=== PATIENT | male | born 1990 | race Caucasian/White ===

== ENCOUNTER 2017-03-02 08:50 | Emergency (ER) | payer OTHER, SELFPAY ==
[2017-03-02 08:59] VITALS: BP 121/64; PULSE 117; RESP 20; TEMP 38.8; O2SAT 91; BMI 33.9
[2017-03-02 09:18] VITALS: BP 121/64; PULSE 117; RESP 20; TEMP 38.8; O2SAT 91; BMI 33.9
--- NOTE | 2017-03-02 09:26 | HMH.EDUTC ---
[facility] [place] Disposition Clinical Impression: Influenza Disposition: Home, Self-Care Condition on Discharge: Good Instructions: Influenza, Diarrhea, DI for Vomiting -- Adult, DI for Fever (Symptom) -- Adult Additional Instructions: ? Start Tamiflu today if you are going to take it. Discussed risk and possible benefits. ? Lots of rest ? Increase Fluids water, Gatorade, powerade, pedialyte,if /toddler/child ? Alternate Tylenol and / or ibuprofen as discussed for fever, aches, chills x 24 hours without medication for symptoms ? Follow up IMMEDIATELY for new or worsening Symptoms OR no noticeable improvement over the next 48-72 hours, 911 for difficulty or breathing ? You or your child area contagious until no fever, aches, chills for 24 hours with medication for symptoms Prescriptions: Ondansetron [Zofran 4mg ODT] 4 mg PO Q8H PRN #20 tab.rapdis PRN Reason: Vomiting Oseltamivir Phosphate [Tamiflu 75mg Capsule] 75 mg PO BID #10 cap Referrals: Ricky Moreira MD [Primary Care Provider] - Forms: Work/School Release Medical Decision Making Vital Signs: 03/02/17 08:59 03/02/17 09:18 Temperature 101.8 F H 101.8 F H Temperature Source Oral Temporal Artery Scan Pulse Rate [Right Brachial] 117 H 117 H Respiratory Rate 20 20 Blood Pressure [Right Arm] 121/64 121/64 Blood Pressure Mean [Right Arm] 83 83 Blood Pressure Source [Right Arm] Manual Cuff/ Doppler Automatic Cuff Blood Pressure Position [Right Arm] Sitting Sitting 02 Sat by Pulse Oximetry 91 L 91 L Oxygen Delivery Method Room Air Room Air - Lab Data Lab Results 03/02/17 09:14: Influenza Type A Ag Positive A, Influenza Type B Ag Negative, Strep Scn Rapid Clinic Negative Orders (Tests/Meds): ED MEDICATIONS Discontinued Medications Generic Name Dose Route Start Last Admin Trade Name Freq PRN Reason Stop Dose Admin Acetaminophen 650 mg 03/02/17 09:59 Acetaminophen 325mg Tab PO 03/02/17 10:00 ONCE ONE Ibuprofen 600 mg 03/02/17 09:27 03/02/17 09:56 Motrin 600mg Tablet PO 03/02/17 09:28 600 mg ONCE ONE Administration ORDERS Category Date Time Status Strep Screen Confirmation Stat Micro 03/02/17 09:14 Received - Robert Inquiry Pt receiving controlled substance: No Robert was queried for this patient: No - Reevaluation(s) Time: 10:04 (Patient fever still elevated after Motrin, Patient given Tylenol and will re-evaluate) [facility] HPI - General Stated complaint: vomiting diarrhea fever achey Mode of Arrival: Ambulatory Source of Information: Patient Limitations: No Limitations Description of Symptoms (Recalled from Triage Doc. by RN): PT C/O FEVER, BODYACHES, N/V/D, COUGH. PT STATES HE WAS SWABBED YESTERDAY FOR THE FLU AND IT WAS NEGATIVE HEENT Symptoms (Recalled from RN notes): No Resp Symptoms (Recalled from RN notes): Yes (COUGH AND CONGESTION) Skin Symptoms (Recalled from RN notes): No MS Symptoms (Recalled from RN notes): No Functional Status (Recalled from RN notes): N/A - History of Present Illness Provider Complaint: Patient state that he began feeling bad on Tuesday State that yesterday he began to have a low grade fever and went to the [facility] and had a flu swab done State that swab was negative and he began treatment for a sinus infection State that after he got home last night his fever began to get higher and got up to 103.0 State that he took some dayquill because he did not have any tylenol or Motrin and then this morning he felt worse Having body aches, vomiting and some diarrhea and fever along with sore throat. - Related Data Home Medications Medication Instructions Recorded Confirmed ibuprofen 200 mg capsule 200 mg PO ONCE 03/01/17 varenicline 0.5 mg tablet 1 mg PO BID 03/01/17 Previous Rx's Medication Instructions Recorded amoxicillin 500 mg capsule 500 mg PO Q12H 10 Days #20 cap 03/01/17 Ondansetron [Zofran 4mg ODT] 4 mg PO Q8H PRN #20 tab.rapdis 03/02/17
--- NOTE | 2017-03-02 09:29 | ED_ITS ---
[facility] [place] Disposition Clinical Impression: Influenza Disposition: Home, Self-Care Condition on Discharge: Good Instructions: Influenza, Diarrhea, DI for Vomiting -- Adult, DI for Fever ( Symptom) -- Adult Additional Instructions: ? Start Tamiflu today if you are going to take it. Discussed risk and possible benefits. ? Lots of rest ? Increase Fluids water, Gatorade, powerade, pedialyte,if infant/toddler/child ? Alternate Tylenol and / or ibuprofen as discussed for fever, aches, chills x 24 hours without medication for symptoms ? Follow up IMMEDIATELY for new or worsening Symptoms OR no noticeable improvement over the next 48-72 hours, 911 for difficulty or breathing ? You or your child area contagious until no fever, aches, chills for 24 hours with medication for symptoms Prescriptions: Ondansetron [Zofran 4mg ODT] 4 mg PO Q8H PRN #20 tab.rapdis PRN Reason: Vomiting Oseltamivir Phosphate [Tamiflu 75mg Capsule] 75 mg PO BID #10 cap Referrals: Ricky Moreira MD [Primary Care Provider] - Forms: Work/School Release Medical Decision Making Vital Signs: 03/02/17 08:59 03/02/17 09:18 Temperature 101.8 F H 101.8 F H Temperature Source Oral Temporal Artery Scan Pulse Rate [Right Brachial] 117 H 117 H Respiratory Rate 20 20 Blood Pressure [Right Arm] 121/64 121/64 Blood Pressure Mean [Right Arm] 83 83 Blood Pressure Source [Right Arm] Manual Cuff/ Doppler Automatic Cuff Blood Pressure Position [Right Arm] Sitting Sitting 02 Sat by Pulse Oximetry 91 L 91 L Oxygen Delivery Method Room Air Room Air - Lab Data Lab Results 03/02/17 09:14: Influenza Type A Ag Positive A, Influenza Type B Ag Negative, Strep Scn Rapid Clinic Negative Orders (Tests/Meds): ED MEDICATIONS Discontinued Medications Generic Name Dose Route Start Last Admin Trade Name Freq PRN Reason Stop Dose Admin Acetaminophen 650 mg 03/02/17 09:59 Acetaminophen 325mg Tab PO 03/02/17 10:00 ONCE ONE Ibuprofen 600 mg 03/02/17 09:27 03/02/17 09:56 Motrin 600mg Tablet PO 03/02/17 09:28 600 mg ONCE ONE Administration ORDERS Category Date Time Status Strep Screen Confirmation Stat Micro 03/02/17 09:14 Received - Robert Inquiry Pt receiving controlled substance: No Robert was queried for this patient: No - Reevaluation(s) Time: 10:04 (Patient fever still elevated after Motrin, Patient given Tylenol and will re-evaluate) [facility] [place] HPI - General Stated complaint: vomiting diarrhea fever achey Mode of Arrival: Ambulatory Source of Information: Patient Limitations: No Limitations Description of Symptoms (Recalled from Triage Doc. by RN): PT C/O FEVER, BODYACHES, N/V/D, COUGH. PT STATES HE WAS SWABBED YESTERDAY FOR THE FLU AND IT WAS NEGATIVE HEENT Symptoms (Recalled from RN notes): No Resp Symptoms (Recalled from RN notes): Yes (COUGH AND CONGESTION) Skin Symptoms (Recalled from RN notes): No MS Symptoms (Recalled from RN notes): No Functional Status (Recalled from RN notes): N/A - History of Present Illness Provider Complaint: Patient state that he began feeling bad on Tuesday State that yesterday he began to have a low grade fever and went to the [facility] and had a flu swab done State that swab was negative and he began treatment for a sinus infection State that after he got home last [facility]
[2017-03-02 09:46] LABS: UTC Influenza A Antigen Positive (Negative); UTC Influenza B Antigen Negative (Negative); UTC Strep Screen (Rapid) Negative (Negative)
== END 2017-03-02 09:55 | disposition home or self-care (01) ==
PROVIDERS: Nurse Practitioner; Emergency Provider Emergency Medicine; Family Provider Internal Medicine; PCP Internal Medicine Adolescent Medicine
DX: J11.1 Influenza due to unidentified influenza virus with other respiratory manifestations (principal); F17.210 Nicotine dependence, cigarettes, uncomplicated
CPT/HCPCS: 87804; 87880; 99202

== ENCOUNTER 2020-05-10 09:28 | Emergency (ER) | payer OTHER, SELFPAY ==
[2020-05-10 09:30] VITALS: BP 146/94; PULSE 71; RESP 17; TEMP 36.8; O2SAT 98; BMI 36.6
--- NOTE | 2020-05-10 09:55 | HMH.EDUTC ---
[facility] Clinical Impression: Vomiting and diarrhea Disposition: Home, Self-Care Condition on Discharge: Good Instructions: Nausea and Vomiting-Adult, DI for Nausea -- Adult, Ondansetron, Diarrhea, DI for COVID-19 (Suspected or Confirmed ) Additional Instructions: ? Avoid fruit juices, as these do not replace minerals and can actually increase diarrhea. ? Children and adults can use sports drinks to replenish electrolytes. Younger children and infants should use products formulated for children, like oral rehydration solutions. ? Eat food in small amounts and let your stomach recover. ? Get lots of rest. You may feel tired or weak. ? No greasy or fried foods for the next 24-48 hours BRAT diet Bananas Rice Apples and [place] ? Make sure to drink plenty of liquids ? Return if needed ? Straight to ER if any life threatening symptoms ? Zofran as prescribed ? You was given an outpatient order for diarrhea panel, please collect specimen and bring back to outpatient lab then call back to the [facility] or follow up with family doctor for results ? Follow up with family doctor in the next 48-72 hours if no improvement or any worsening of symptoms You were tested for today for COVID19 your test result should be back in the next 24-48 hours, you may call to the [facility] to see if your test results are back in the next 48 hours [phone] [facility] hours are 9am-9pm You was given a handout with instructions for Self Quarantine and Self isolation for while you wait on test results and what to do if they are positive If you are positive the Health Dept will be contacting you also Prescriptions: Ondansetron [Zofran 4mg ODT] 4 mg PO TIDP PRN #9 tab PRN Reason: Nausea [id number] Referrals: PCP,No [Primary Care Provider] - As needed Forms: Work/School Release Time of Disposition: 10:08 Medical Decision Making - Robert Inquiry Pt receiving controlled substance: Danielle Jones was queried for this patient: No Vital Signs: 05/10/20 09:30 Temperature 98.2 F Temperature Source Oral Pulse Rate [Right Brachial] 71 Respiratory Rate 17 Blood Pressure [Right Arm] 146/94 H Blood Pressure Mean [Right Arm] 111 Blood Pressure Source [Right Arm] Automatic Cuff Blood Pressure Position [Right Arm] Sitting 02 Sat by Pulse Oximetry 98 Oxygen Delivery Method Room Air Orders (Tests/Meds): ORDERS Category Date Time Status Covid-19 Nasal PCR ([facility]) Routine Lab 05/10/20 09:36 Ordered [facility] HPI - General Stated complaint: covid test Time Seen by Provider: 05/10/20 09:56 Mode of Arrival: Ambulatory Source of Information: Patient Limitations: No Limitations Description of Symptoms (Recalled from Triage Doc. by RN): [place] C/O WEAKNESS, NAUSEA, VOMITING, AND CHILLS. NEEDS COVID TEST FOR WORK HEENT Symptoms (Recalled from RN notes): No Resp Symptoms (Recalled from RN notes): No Skin Symptoms (Recalled from RN notes): No MS Symptoms (Recalled from RN notes): No Functional Status (Recalled from RN notes): WNL - History of Present Illness Provider Complaint: Patient state that he wasnt feeling well having some nausea States that yesterday as he was going to work he got sick to his stomach and after getting to work vomited multiple times State that he went back home and had chills, body aches and vomiting State that he had an episode of diarrhea, but has periodic diarrhea anyway at times so not sure if it is related State that he was not sure if he has a stomach bug or exposed to COVID and work will not let him return until he is tested - Related Data Previous Rx's Medication Instructions Recorded Ondansetron [Zofran 4mg ODT] 4 mg PO TIDP PRN #9 tab 05/10/20 Allergies Allergy/AdvReac Type Severity Reaction Status Date / Time No Known Allergies Allergy Verified 03/01/17 12:11 - Worker's Comp Is this a Worker's Comp case?: No [facility] History - Hepatitis A Screen Drug use history?: No
[2020-05-10 10:10] VITALS: BP 146/94; PULSE 71; RESP 17; TEMP 36.8; O2SAT 98
== END 2020-05-10 10:15 | disposition home or self-care (01) ==
PROVIDERS: Emergency Provider Nurse Practitioner
DX: Z20.822 Contact with and (suspected) exposure to COVID-19 (principal); R11.2 Nausea with vomiting, unspecified; R19.7 Diarrhea, unspecified; F17.210 Nicotine dependence, cigarettes, uncomplicated
CPT/HCPCS: 99202; G0463; U0003

== ENCOUNTER → 2021-02-16 13:22 | Outpatient (CLI) | payer OTHER, SELFPAY | PROVIDERS: Visit Provider Nurse Practitioner | DX: U07.1 COVID-19 (principal) | CPT/HCPCS: C9803; U0003; U0005 ==

== ENCOUNTER 2022-03-25 13:34 | Emergency (ER) | payer OTHER, SELFPAY ==
--- NOTE | 2022-03-25 14:47 | EXP.UTC ---
Discharge Plan Disposition Patient Disposition: Home, Self-Care Condition: Good Prescriptions Prescriptions: New methylprednisolone 4 mg Tablets,Dose Pack 4 mg PO DIRECTED Qty: 21 0RF icqlxvixftoocjl-[id number]-XW [Bromfed DM] 2-30-10 mg/5 mL Syrup 5 ml PO Q6H PRN (Reason: Cough) Qty: 240 0RF amoxicillin-pot clavulanate 875-125 mg Tablet 1 tab PO Q12H Qty: 20 0RF No Action ondansetron 4 MG tablet,disintegrating 4 mg PO TIDP PRN (Reason: Nausea) Qty: 9 0RF Referrals Follow up/Referrals: Isabel Wharton APRN [Primary Care Provider] - See instructions Activity Restrictions/Add. Instructions Additional Instructions/Restrictions: Drink plenty of fluids. Take tylenol or ibuprofen for pain or fever. Take the medications as directed. Follow up with your regular doctor. GO TO THE ER FOR ANY WORSENING SYMPTOMS Clinical Impressions Clinical Impression: Sinusitis Stand Alone Forms Stand Alone Forms: Work/School Release Instructions Patient Instructions: Sinusitis, DI for Sinusitis Discharge ED Provider: Geovanni Chase [facility] General Stated complaint: Congestion drainage vomiting weakness Time Seen by Provider: 03/25/22 14:47 History of Present Illness Provider Complaint: He states that for the past 1 week he has had worsening sinus congestion and ear pain. He also has a cough, but he denies significant chest congestion. Related Data Previous Rx's Medication Instructions Recorded ondansetron 4 mg disintegrating 4 mg PO TIDP PRN Nausea #9 tabs 05/10/20 tablet amoxicillin 875 mg-potassium 1 tab PO Q12H #20 tabs 03/25/22 clavulanate 125 mg tablet cusugvuphbvmrkk-klhshhtkobbxfcc-SD 5 ml PO Q6H PRN Cough #240 mL 03/25/22 2 mg-30 mg-10 mg/5 mL oral syrup (Bromfed DM) methylprednisolone 4 mg tablets in 4 mg PO DIRECTED #21 tabs 03/25/22 a dose pack Allergies Allergy/AdvReac Type Severity Reaction Status Date / Time No Known Allergies Allergy Verified 03/25/22 15:09 [facility] Disclaimer: The information contained in this section may have been updated after the patient was seen, as this information can be updated by other users. Social History Smoking Status: Current every day smoker tobacco type: cigarettes alcohol intake: never current occupational status: other Travel in the last 8 weeks: None ROS Obtained: Yes All systems reviewed & no additional complaints except as documented Constitutional Constitutional: Reports poor appetite Eyes Eyes: Reports system reviewed and no additional complaints, except as documented ENT Ears, Nose, Mouth, and Throat: Reports as per HPI Cardiovascular Cardiovascular: Reports system reviewed and no additional complaints, except as documented and Denies chest pain Respiratory Respiratory: Denies shortness of breath, Denies chest congestion, Reports cough, Denies stridor and Denies wheezing Gastrointestinal Gastrointestingal: Reports system reviewed and no additional complaints, except as documented; Denies abdominal pain, diarrhea or vomiting Musculoskeletal Musculoskeletal: Reports system reviewed and no additional complaints, except as documented and Denies arthralgias Integumentary/Breasts Skin/Breast: Reports system reviewed and no additional complaints, except as documented and Denies rash Neurologic Neurologic: Denies paresthesias Allergic/Immunologic Allergic/Immunologic: Denies wheezing Physical Exam General General appearance: alert and in no apparent distress Eye Eye exam: Present normal appearance, PERRL and EOMI ENT ENT exam: Present mucous membranes moist and normal external ear exam Expanded ENT Exam External ear exam: Present normal external inspection TM/Canal exam: Bilateral TM: erythema and bulging Nose exam: Absent sinus tenderness Nasal speculum exam: Bilateral: normal Mouth exam: Present normal external inspection; Absent drooling
[2022-03-25 14:50] VITALS: BP 133/92; PULSE 116; RESP 20; TEMP 37.3; O2SAT 97; BMI 35.2
[2022-03-25 15:00] LABS: UTC Influenza A Antigen Negative (Negative); UTC Influenza B Antigen Negative (Negative)
[2022-03-25 15:28] VITALS: BP 133/92; PULSE 116; RESP 20; TEMP 37.3; O2SAT 97
== END 2022-03-25 15:28 | disposition home or self-care (01) ==
PROVIDERS: Emergency Provider Nurse Practitioner Family; PCP Nurse Practitioner Family
DX: J32.9 Chronic sinusitis, unspecified (principal)
CPT/HCPCS: 87804; 99212; 99213; G0463

== ENCOUNTER → 2022-05-24 07:18 | Outpatient (CLI) | payer OTHER, SELFPAY ==
--- NOTE | 2022-05-24 07:23 | US_ITS ---
FINAL REPORT CLINICAL HISTORY: ALCOHOL ABUSE FINDINGS: ULTRASOUND RIGHT UPPER QUADRANT Sonographic imaging of the right upper quadrant was obtained. The pancreas is partially obscured. The liver has increased echogenicity consistent with fatty infiltration. There is no evidence of gallstones. There is no gallbladder wall thickening. There is no biliary ductal dilatation. The common duct is normal at 3 mm. Limited images of the right kidney are unremarkable. IMPRESSION: Fatty liver, otherwise unremarkable right upper quadrant ultrasound. Reviewed, Interpreted and Dictated by Patrice Oswald MD Transcribed by Paige Andrew Authenticated and [facility]
== END ==
PROVIDERS: PCP Nurse Practitioner Family; Visit Provider Internal Medicine Adolescent Medicine
DX: F10.10 Alcohol abuse, uncomplicated (principal); R89.9 Unspecified abnormal finding in specimens from other organs, systems and tissues
CPT/HCPCS: 76705

== ENCOUNTER → 2022-07-05 08:13 | Outpatient (CLI) | payer OTHER, SELFPAY ==
[2022-07-05 09:03] LABS: Basophils # 0.1 K/mm3 (0-0.2); Basophils % 1.1 % (0.1-2.0); Eosinophils # 0.4 K/mm3 (0.0-0.4); Eosinophils % 5.4 % (0.1-12.0); Hematocrit 51.2 % (42.0-52.0); Hemoglobin 16.9 g/dL (14.1-18.0); Lymphocytes # 1.6 K/mm3 (0.7-4.5); Lymphocytes % 22.8 % (10-50); Mean Corpuscular HGB Conc 33.1 g/dL (31.8-35.4); Mean Corpuscular Hemoglobin 33.7 pg (27.0-31.2); Mean Corpuscular Volume 101.8 fl (80-94); Mean Platelet Volume 9.3 fl (7.4-10.4); Monocytes # 0.5 K/mm3 (0.1-1.0); Monocytes % 7.1 % (1.7-9.3); Neutrophils # 4.6 K/mm3 (1.8-7.8); Neutrophils % 63.7 % (37.0-80.0); Platelet Count 167 K/mm3 (142-424); Red Blood Count 5.03 M/mm3 (4.60-6.20); Red Cell Distribution Width 13.2 % (11.5-17.5); White Blood Count 7.2 K/mm3 (4.8-10.8)
[2022-07-05 09:21] LABS: Anion Gap 17.3 mEq/L (5-15); Blood Urea Nitrogen 14 mg/dl (9-20); Calcium 8.9 mg/dl (8.4-10.2); Carbon Dioxide 27 mmol/L (22.0-30.0); Chloride 100 mmol/L (98-107); Estimated Glomerular Filt Rate 114 ml/min (>60); GFR (African American) 137 ML/MIN (>60); Glucose 112 mg/dl (74-100); Potassium 4.3 mmoL/L (3.5-5.1); Sodium 140 mmol/L (136-145)
== END ==
LOC: LAB 08:13
PROVIDERS: PCP Nurse Practitioner Family; Visit Provider Surgery
DX: L72.3 Sebaceous cyst (principal)
CPT/HCPCS: 36415; 80048; 85025

== ENCOUNTER 2022-07-08 08:00 | Day surgery (SDC) | payer OTHER, SELFPAY ==
[2022-07-05 14:04] VITALS: BMI 35.2
[2022-07-08] VITALS (11 sets, daily range): BP systolic 129–159; BP diastolic 70–101; PULSE 61–79; RESP 14–18; TEMP 36.2–43; O2SAT 94–99
--- NOTE | 2022-07-08 11:05 | P.PN_ITS ---
[facility] Disclaimer: The information contained in this section may have been updated after the patient was seen, as this information can be updated by other users. Medical History History of gastroesophageal reflux (GERD) Scalp cyst Surgical History History of repair of anterior cruciate ligament of right knee Family History Other Family history of acute congestive heart failure Family history of cancer Family history of diabetes mellitus type II Social History Smoking Status: Current every day smoker tobacco type: cigarettes packs per day: 1 alcohol intake: current substance use type: denies use current occupational status: other Travel in the last 8 weeks: None [facility] Anesthesia Checklist Patient Identification Patient Identification: Arm Band and Verbal (Name & ) Structural Data Admitted From: Home Planned Operative Procedure/s: Cyst excision Consent for Planned Operative Procedure(s) Verified: Yes NPO Status Verified Time NPO: 00:00 Additional verifications Anesthesia Reactions: No Hx Blood Transfusions: No Blood Transfusion Reaction: No Airway Assessment C-Spine Mobility Assessed: Yes TMJ Mobility Assessed: Yes Dentition: Good Dentition Neurological Assessment Level of Consciousness: Awake Hx Seizures: No Numbness or tingling in extremities: No Anesthesia Plan Anesthesia Risk discussed: Yes Anesthesia Plan: Verified ASA Class: II Anesthesia Type: General
--- NOTE | 2022-07-08 12:43 | EXP.OP.NOTE ---
Date of procedure: 07/08/22 Pre-op Diagnosis:: 1 cm sebaceous cyst along left posterior neck 2 cm central/frontal scalp cyst Post-op Diagnosis:: Same Procedure performed:: Excision of 1 cm sebaceous cyst on the left posterior neck Excision of 2 cm central/frontal scalp cyst Surgeon:: Andres Mendez MD Anesthesia: local and LMA Estimated blood loss (mL): 5 Operative findings:: Left posterior neck cyst excised in toto Scalp cyst contents excised and wound packed open Operative note:: After informed consent was obtained the patient was taken to the operating room and placed in the supine position. Monitored anesthesia care ensued and he was transferred to the right lateral decubitus position. His left posterior neck and central scalp region were prepped and draped in a sterile fashion. After infiltration local anesthetic an elliptical incision was made around the left posterior neck incision. Electrocautery was utilized to transect through the deep subcutaneous tissue. The lesion was excised in toto and passed off for pathologic evaluation. Skin was reapproximated with a single 4-0 nylon in an interrupted mattress fashion. The central scalp cyst was then evaluated. The central inflamed portion was opened with electrocautery in an elliptical fashion. The cyst contents were excised. The wound was packed open and the patient was transferred to PACU after removal of his laryngeal mask airway. Condition: stable Disposition: PACU Specimens:: Left posterior neck cyst Central/frontal scalp cyst contents Complications:: No immediate
--- NOTE | 2022-07-08 12:58 | EXP.ANES.I ---
[facility] Anesthesia Record Part I Anesthesia Record I Intake, IV Amount: 400 Estimated blood loss (mL): 2 Urine output (mL): 0 Blood Products used (#): none Blood Pressure: 157/101 SaO2: 98 Pulse Rate: 79 Respiratory Rate: 14 Temperature: 97.1 F Patient is:: Drowsy and Stable Stable to PACU at:: 12:53
--- NOTE | 2022-07-09 11:19 | EXP.ANES.II ---
[facility] Anesthesia Record Part II Anesthesia Record Part II Discharge Time: 13:23 Destination: Surgical Day Care (OP Surgery) PACU nurse assessment reviewed?: Yes Patient Condition:: Good Anesthesia Complications:: None Swallowing reflex intact?: Yes Cyanosis?: No Blood Pressure: 132/81 Pulse Rate: 62 Temperature: 97.8 F Mental Status: Alert & Oriented Pain level:: 0 Nausea and/or vomitting:: None Intake, IV Amount: 0
[2022-07-09 11:21] VITALS: BP 132/81; PULSE 62; TEMP 36.6
== END 2022-07-08 14:35 | disposition home or self-care (01) ==
PROVIDERS: PCP Nurse Practitioner Family; Visit Provider Surgery
PROC: (CPT 11423; principal; 2022-07-08 09:30)
DX: D23.4 Other benign neoplasm of skin of scalp and neck (principal); F17.210 Nicotine dependence, cigarettes, uncomplicated; Z79.899 Other long term (current) drug therapy
CPT/HCPCS: 11423; 12042; 11422; 96374; J2405

== ENCOUNTER → 2022-10-22 14:08 | Outpatient (CLI) | payer OTHER, SELFPAY ==
[2022-10-22 11:08] LABS: Basophils # 0.1 K/mm3 (0-0.2); Basophils % 0.9 % (0.1-2.0); Eosinophils # 0.3 K/mm3 (0.0-0.4); Eosinophils % 4.8 % (0.1-12.0); Hemoglobin 17.6 g/dL (14.1-18.0); Lymphocytes # 1.4 K/mm3 (0.7-4.5); Mean Corpuscular HGB Conc 33.2 g/dL (31.8-35.4); Mean Corpuscular Hemoglobin 32.7 pg (27.0-31.2); Mean Corpuscular Volume 98.6 fl (80-94); Mean Platelet Volume 10.7 fl (7.4-10.4); Monocytes # 0.4 K/mm3 (0.1-1.0); Monocytes % 6.3 % (1.7-9.3); Neutrophils # 3.7 K/mm3 (1.8-7.8); Platelet Count 151 K/mm3 (142-424); Red Blood Count 5.38 M/mm3 (4.60-6.20); Red Cell Distribution Width 13.5 % (11.5-17.5); White Blood Count 5.8 K/mm3 (4.8-10.8)
[2022-10-22 11:38] LABS: Hemoglobin A1C 5.4 % (4.0-6.0)
[2022-10-22 12:53] LABS: Alanine Aminotransferase 277 U/L (12-78); Albumin/Globulin Ratio 1.7 (1.1-1.8); Alkaline Phosphatase 104 U/L (38-126); Anion Gap 20.1 mEq/L (5-15); Aspartate Amino Transferase 227 U/L (17-59); Bilirubin,Total 0.7 mg/dl (0.2-1.3); Blood Urea Nitrogen 8 mg/dl (9-20); Calcium 9.3 mg/dl (8.4-10.2); Carbon Dioxide 23 mmol/L (22.0-30.0); Chloride 102 mmol/L (98-107); Chol/HDL Ratio 6.3 (1-3.5); Cholesterol 273 mg/dl (140-200); Estimated Glomerular Filt Rate 114 ml/min (>60); GFR (African American) 137 ML/MIN (>60); Glucose 112 mg/dl (74-100); HDL Cholesterol 43 mg/dl (40-60); Potassium 4.1 mmoL/L (3.5-5.1); Sodium 141 mmol/L (136-145); Triglycerides 242 mg/dl (30-150); VLDL Cholesterol 48 mg/dL (0-40)
[2022-10-22 13:04] LABS: Direct LDL Cholesterol 180.72 mg/dL (100-129)
[2022-10-22 13:09] LABS: 25-OH Vitamin D, Total 44.2 ng/mL (30-100); Free T4 (Free Thyroxine) 0.85 ng/dl (0.78-2.19)
[2022-10-22 13:24] LABS: Thyroid Stimulating Hormone 2.63 uIU/mL (0.465-4.68)
[2022-10-23 09:23] LABS: HIV Screen 4th Generation wRfx Non Reactive (Non Reactive)
[2022-10-23 11:50] LABS: HCV Ab Non Reactive (Non Reactive)
[2022-11-05 17:41] LABS: Free Testosterone (Direct) 6.1 pg/mL (8.7-25.1); Testosterone, Total, LC/MS 129.3 ng/dL (264.0-916.0)
== END ==
PROVIDERS: Nurse Practitioner Family; PCP Internal Medicine; Visit Provider Internal Medicine
DX: Z00.00 Encounter for general adult medical examination without abnormal findings (principal); Z13.29 Encounter for screening for other suspected endocrine disorder; Z13.1 Encounter for screening for diabetes mellitus; Z11.4 Encounter for screening for human immunodeficiency virus [HIV]; Z11.59 Encounter for screening for other viral diseases; R79.89 Other specified abnormal findings of blood chemistry; E66.9 Obesity, unspecified; Z68.36 Body mass index [BMI] 36.0-36.9, adult
CPT/HCPCS: 80053; 80061; 82306; 82626; 83036; 84439; 84443; 85025; 86703; G0432

== ENCOUNTER → 2022-11-12 10:53 | Outpatient (CLI) | payer OTHER, SELFPAY ==
[2022-11-12 09:35] LABS: Coronavirus 19, PCR Not Detected (NotDetected); Influenza A, PCR Not Detected (NotDetected); Influenza B, PCR Not Detected (NotDetected)
== END ==
LOC: LAB.DROPOF 10:54
PROVIDERS: PCP Internal Medicine; Visit Provider Internal Medicine
DX: R50.9 Fever, unspecified (principal)
CPT/HCPCS: 87636

== ENCOUNTER → 2022-11-23 13:47 | Outpatient (CLI) | payer OTHER, SELFPAY ==
[2022-11-23 15:28] VITALS: BMI 36.2
== END ==
PROVIDERS: PCP Internal Medicine; Visit Provider Internal Medicine
DX: Z71.3 Dietary counseling and surveillance (principal); E78.5 Hyperlipidemia, unspecified
CPT/HCPCS: 97802

== ENCOUNTER → 2022-12-24 18:13 | Outpatient (CLI) | payer OTHER, SELFPAY ==
[2022-12-24 19:19] LABS: Basophils # 0.1 K/mm3 (0-0.2); Basophils % 1.1 % (0.1-2.0); Eosinophils # 0.2 K/mm3 (0.0-0.4); Eosinophils % 3.5 % (0.1-12.0); Hematocrit 52.5 % (42.0-52.0); Lymphocytes # 1.5 K/mm3 (0.7-4.5); Lymphocytes % 23.5 % (10-50); Mean Corpuscular Hemoglobin 35.7 pg (27.0-31.2); Mean Corpuscular Volume 101.9 fl (80-94); Mean Platelet Volume 11.7 fl (7.4-10.4); Monocytes # 0.4 K/mm3 (0.1-1.0); Monocytes % 5.4 % (1.7-9.3); Neutrophils # 4.3 K/mm3 (1.8-7.8); Neutrophils % 66.5 % (37.0-80.0); Platelet Count 160 K/mm3 (142-424); Red Blood Count 5.15 M/mm3 (4.60-6.20); Red Cell Distribution Width 13.7 % (11.5-17.5); White Blood Count 6.5 K/mm3 (4.8-10.8)
[2022-12-24 19:28] LABS: Hemoglobin 18.4 g/dL (14.1-18.0)
[2022-12-24 19:42] LABS: Chloride 102 mmol/L (98-107); Potassium 3.9 mmoL/L (3.5-5.1); Sodium 139 mmol/L (136-145)
[2022-12-24 19:45] LABS: Alanine Aminotransferase 206 U/L (12-78); Albumin Level 4.9 g/dl (3.5-5.0); Albumin/Globulin Ratio 1.6 (1.1-1.8); Alkaline Phosphatase 81 U/L (38-126); Anion Gap 14.9 mEq/L (5-15); Aspartate Amino Transferase 260 U/L (17-59); Bilirubin,Total 1.1 mg/dl (0.2-1.3); Blood Urea Nitrogen 10 mg/dl (9-20); Carbon Dioxide 26 mmol/L (22.0-30.0); Estimated Glomerular Filt Rate 132 ml/min (>60); GFR (African American) 159 ML/MIN (>60); Globulin 3.1 g/dL (1.3-3.2)
[2022-12-24 19:46] LABS: Calcium 9.5 mg/dl (8.4-10.2); Glucose 139 mg/dl (74-100)
[2022-12-26 08:16] LABS: LH 4.7 mIU/mL (1.7-8.6); Prolactin 10.9 ng/mL (4.0-15.2); Sex Hormone Binding Globulin 23.4 nmol/L (16.5-55.9)
== END ==
LOC: LAB.DROPOF 18:14
PROVIDERS: PCP Internal Medicine; Visit Provider Internal Medicine
DX: E29.1 Testicular hypofunction (principal); R79.89 Other specified abnormal findings of blood chemistry; R11.10 Vomiting, unspecified; R19.7 Diarrhea, unspecified
CPT/HCPCS: 80053; 83001; 83002; 84146; 84270; 85025

== ENCOUNTER → 2023-01-10 09:47 | Outpatient (CLI) | payer OTHER, SELFPAY | PROVIDERS: PCP Internal Medicine; Visit Provider Internal Medicine | DX: E29.1 Testicular hypofunction (principal) | CPT/HCPCS: 82533 ==

== ENCOUNTER 2023-05-06 16:40 | Outpatient (CLI) | payer OTHER, SELFPAY ==
[2023-05-14 18:10] LABS: Testosterone, Total, LC/MS 334 ng/dL (.)
== END 2023-05-06 23:59 ==
LOC: LAB.DROPOF 16:40
PROVIDERS: PCP Internal Medicine; Visit Provider Internal Medicine
DX: E29.1 Testicular hypofunction (principal); R79.89 Other specified abnormal findings of blood chemistry
CPT/HCPCS: 84403

== ENCOUNTER 2023-10-20 09:06 | Outpatient (CLI) | payer OTHER, SELFPAY ==
--- NOTE | 2023-10-20 09:20 | XR_ITS ---
FINAL REPORT CLINICAL HISTORY: .pain, cyst anterior lateral at joint COMPARISON: None FINDINGS: LEFT WRIST Three views demonstrate no acute fracture or dislocation. The bones are well-mineralized. The visualized joint spaces are normally aligned. The soft tissues are unremarkable. IMPRESSION: No acute process. Reviewed, Interpreted and Dictated by Patrice Oswald MD Transcribed by Jeniffer Palm Authenticated and [facility]
[2023-10-20 09:31] LABS: Basophils # 0.1 K/mm3 (0-0.2); Basophils % 1.5 % (0.1-2.0); Eosinophils # 0.3 K/mm3 (0.0-0.4); Eosinophils % 3.2 % (0.1-12.0); Hematocrit 52.1 % (42.0-52.0); Hemoglobin 16.8 g/dL (14.1-18.0); Lymphocytes # 1.6 K/mm3 (0.7-4.5); Lymphocytes % 19.6 % (10-50); Mean Corpuscular HGB Conc 32.3 g/dL (31.8-35.4); Mean Corpuscular Hemoglobin 33.6 pg (27.0-31.2); Mean Corpuscular Volume 104.1 fl (80-94); Mean Platelet Volume 9.1 fl (7.4-10.4); Monocytes # 0.5 K/mm3 (0.1-1.0); Monocytes % 5.8 % (1.7-9.3); Neutrophils # 5.9 K/mm3 (1.8-7.8); Neutrophils % 69.9 % (37.0-80.0); Platelet Count 185 K/mm3 (142-424); Red Cell Distribution Width 13.8 % (11.5-17.5); White Blood Count 8.4 K/mm3 (4.8-10.8)
[2023-10-20 10:50] LABS: Albumin Level 4.6 g/dl (3.5-5.0); Chloride 101 mmol/L (98-107); Potassium 4.4 mmoL/L (3.5-5.1); Sodium 137 mmol/L (136-145)
[2023-10-20 10:53] LABS: Alanine Aminotransferase 74 U/L (12-78); Albumin/Globulin Ratio 1.7 (1.1-1.8); Alkaline Phosphatase 66 U/L (38-126); Anion Gap 10.4 mEq/L (5-15); Aspartate Amino Transferase 63 U/L (17-59); Bilirubin,Total 1.3 mg/dl (0.2-1.3); Blood Urea Nitrogen 13 mg/dl (9-20); Carbon Dioxide 30 mmol/L (22.0-30.0); Estimated Glomerular Filt Rate 98 ml/min (>60); GFR (African American) 119 ML/MIN (>60); Globulin 2.7 g/dL (1.3-3.2); Total Protein,Serum 7.3 g/dl (6.3-8.2)
[2023-10-20 10:54] LABS: Calcium 9.5 mg/dl (8.4-10.2); Glucose 95 mg/dl (74-100)
[2023-10-21 10:14] LABS: HBsAg Screen Negative (Negative); HCV Ab Non Reactive (Non Reactive); Hep A Ab, IGM Negative (Negative); Hep B Core Ab, IgM Negative (Negative)
== END 2023-10-20 23:59 | disposition home or self-care (01) ==
LOC: LAB 09:07
PROVIDERS: Nurse Practitioner Psychiatric/Mental Health; PCP Internal Medicine; Visit Provider Physician Assistant
DX: Z00.00 Encounter for general adult medical examination without abnormal findings (principal); Z87.898 Personal history of other specified conditions; M67.432 Ganglion, left wrist
CPT/HCPCS: 36415; 73110; 80053; 80074; 85025

== ENCOUNTER 2023-11-19 11:10 | Emergency (ER) | payer OTHER, SELFPAY ==
[2023-11-19] VITALS (7 sets, daily range): BP systolic 121–166; BP diastolic 67–87; PULSE 72–79; RESP 16–18; TEMP 36.4–36.7; O2SAT 95–99; BMI 37.1
--- NOTE | 2023-11-19 11:22 | PC.NURSE ---
DR BREWER AT BEDSIDE
[2023-11-19] MEDS: METHOCARBAMOL 500MG TABLET 1500 MG PO (11:31)
[2023-11-19] MEDS: KETOROLAC 30MG/ML VIAL 15 MG IM (11:31)
[2023-11-19] MEDS: predniSONE 20MG TAB 40 MG PO (11:31)
[2023-11-19] MEDS: LIDOCAINE 5% TRANSDERMAL PATCH 1 EACH TP (11:31)
--- NOTE | 2023-11-19 12:23 | CT_ITS ---
PROCEDURE INFORMATION: Exam: CT Lumbar Spine Without Contrast Exam date and time: 11/19/2023 12:58 PM Age: 32 years old Clinical indication: Low back pain; Additional info: Midline BP, previosu injury. Nv intact TECHNIQUE: Imaging protocol: Computed tomography of the lumbar spine without contrast. Radiation optimization: All CT scans at this facility use at least one of these dose optimization techniques: automated exposure control; mA and/or kV adjustment per patient size (includes targeted exams where dose is matched to clinical indication); or iterative reconstruction. COMPARISON: US LIVER 05/24/2022 7:24 AM FINDINGS: Bones/joints: No acute fracture. Normal alignment. No significant disc bulge or herniation. No severe spinal canal stenosis. No significant neural foraminal narrowing. Soft tissues: Unremarkable. IMPRESSION: No acute findings.
--- NOTE | 2023-11-19 12:25 | ED_ITS ---
Discharge Plan Disposition Patient Disposition: Home, Self-Care Chief Complaint: PAIN Prescriptions Prescriptions: New prednisone 20 mg tablet 40 mg PO DAILY 5 Days Qty: 10 0RF lidocaine 5 % adhesive patch,medicated 1 patch topical DAILY Qty: 30 0RF Rx Instructions: leave on most painful area for up to 12 hrs No Action lidocaine HCl-hydrocortison ac 3 %-2.5 % (7 gram) gel 1 applic TX QD-BID PRN (Reason: hemorrhoids) Qty: 7 0RF testosterone 20.25 mg/1.25 gram (1.62 %) gel in metered-dose pump 2 pump topical DAILY Qty: 75 0RF Rx Instructions: apply 1 pump amount over max area of ONE upper arm and shoulder famotidine 20 mg tablet 20 mg PO BID Zyrtec 10 mg capsule 10 mg PO DAILY PRN (Reason: allergies) Referrals Follow up/Referrals: Deny Vargas DO [Primary Care Provider] - See instructions Activity Restrictions/Add. Instructions Additional Instructions/Restrictions: Call your family doctor to establish care for this visit to the emergency department and schedule follow-up within 48 hours to ensure improvement. If you have any worsening of your condition or any other concerning signs or symptoms, return to the emergency department or your primary care doctor for further evaluation. Talk to family doctor about schedule therapy for further management of your lower back pain and small disc herniation at L5-S1. Take Tylenol 1000 mg every 6 hours (4 times daily) and ibuprofen 400 mg every 6 hours (4 times daily) as needed with food and water to prevent GI upset and kidney damage. Clinical Impressions Clinical Impression: Herniated nucleus pulposus, L5-S1 Print Language Print Language: Peruvian Discharge ED Provider: Reyes Amador General Adult HPI General Chief complaint: PAIN Stated complaint: lower back pain and leg pain Time Seen by Provider: 11/19/23 11:18 Mode of Arrival: Ambulatory Source of Information: Patient Limitations: No Limitations Description of Symptoms (Recalled from ER Triage Doc. by RN): Pt. presents to the ED with complaints of lower back pain, bilaterally for the last 10 days. He states it has become worse since yesterday, with shooting pain and spasms. Rating pain a 10/10. History of Present Illness HPI narrative: Please note that above description of symptoms, in this electronic medical record under categorization of recalled from ER triage doctor by RN are reflective of an initial nursing assessment, however, is not reflective of my full history and physical exam that was personally taken and clarified. Consequentially, this preceding description of symptoms, which may include the patient's categorized chief complaint in the EMR, do not reflect my personal clinical impression, and the ultimate description of history of present illness and patient stated complaints should be deferred to this section of the note. Unless stated otherwise or congruent with this section of the note, additional signs, symptoms, or incongruence should be interpreted as inaccurate with my clinical impression. Related Data Home Medications ?Medication ?Instructions ?Recorded ?Confirmed famotidine 20 mg tablet 20 mg PO BID 10/22/22 11/19/23 cetirizine 10 mg capsule (Zyrtec) 10 mg PO DAILY PRN allergies 06/02/23 11/19/23 Previous Rx's ?Medication ?Instructions ?Recorded lidocaine 3 %-hydrocortisone 2.5 % 1 applic TX QD-BID PRN hemorrhoids 03/01/23 (7 gram) rectal gel #7 grams testosterone 2 pump topical DAILY #75 grams 05/17/23 lidocaine 5 % topical patch 1 patch topical DAILY #30 ea 11/19/23 prednisone 20 mg tablet 40 mg (2 x 20 mg) PO DAILY 5 days 11/19/23 #10 tabs Allergies Allergy/AdvReac Type Severity Reaction Status Date / Time No Known Allergies Allergy Verified 11/19/23 11:22 [facility] Disclaimer: The information contained in this section may have been updated after the patient was seen, as this information can be updated by other users. Medical History Dermoid cyst of scalp and neck Cyst, dermoid, face Scalp cyst Sinusitis Allergic rhinitis Vomiting and diarrhea Influenza Pellet wound of face Low testosterone in male Elevated liver enzymes Partial tear of right Achilles tendon History of gastroesophageal reflux (GERD) Scalp cyst Surgical History History of dermoid cyst excision Family History Mother Fatty liver disease, nonalcoholic Other Family history of acute congestive heart failure Family history of cancer Family history of diabetes mellitus type II Social History Smoking Status: Current every day smoker tobacco type: cigarettes packs per day: 1 alcohol intake: current alcohol intake frequency: 0-2 drinks per day substance use type: denies use current occupational status: other Travel in the last 8 weeks: None ROS Obtained: Yes All systems reviewed & no additional complaints except as documented Physical Exam General General appearance: alert, in no apparent distress and obese Head Head exam: atraumatic and normocephalic Eye Eye exam: Present normal appearance, PERRL and EOMI Neck Neck exam: Present normal inspection, full ROM and trachea midline Respiratory Respiratory exam: Absent respiratory distress, wheezes, stridor, accessory muscle use or prolonged expiratory phase Cardiovascular Cardiovascular exam: Present other (Pulses equal symmetric in upper and lower extremities) Abdominal Exam Abdominal exam: Present soft; Absent distention, tenderness or pulsatile mass Extremities Exam Extremities exam: Absent edema Back Exam Back exam: Present tenderness (Midline lumbar spinal tenderness at L5/s1) Neurological Exam Neurological exam: Present alert, oriented X3 and CN II-XII intact; Absent motor sensory deficit Skin Skin exam: Present warm and dry; Absent diaphoresis or erythema Medical Decision Making Medical Records Medical records reviewed: Yes I reviewed the patient's medical records. Screening: Per USPSTF and CDC recommendations, given the prevalence of disease in our region, it is our hospital?s policy to screen for HIV and viral Hepatitis for all patients aged 18 and over and those with ongoing risk factors. Robert Inquiry Pt receiving controlled substance: No Robert was queried for this patient: No Vital Signs: 11/19/23 11:17 11/19/23 11:31 11/19/23 12:00 Temperature 97.5 F L Temperature Source Oral Pulse Rate 76 73 Pulse Rate [Right Brachial] 73 Respiratory Rate 16 18 18 Blood Pressure 126/87 121/78 Blood Pressure [Right Arm] 141/86 H Blood Pressure Mean 94 91 Blood Pressure Mean [Right Arm] 104 Blood Pressure Source [Right Arm] Automatic Cuff Blood Pressure Position [Right Arm] Sitting 02 Sat by Pulse Oximetry 97 99 96 Oxygen Delivery Method Room Air 11/19/23 12:30 11/19/23 13:00 11/19/23 13:31 Temperature Temperature Source Pulse Rate 78 72 79 Pulse Rate [Right Brachial] Respiratory Rate 18 Blood Pressure 124/78 140/86 166/67 H Blood Pressure [Right Arm] Blood Pressure Mean 96 Blood Pressure Mean [Right Arm] Blood Pressure Source [Right Arm] Blood Pressure Position [Right Arm] 02 Sat by Pulse Oximetry 95 99 99 Oxygen Delivery Method Room Air Room Air Orders (Tests/Meds): ED MEDICATIONS Discontinued Medications Generic Name Dose Route Start Last Admin Trade Name Perla PRN Reason Stop Dose Admin Ketorolac Tromethamine 15 mg 11/19/23 11:19 11/19/23 11:31 Ketorolac 30mg/Ml Vial IM 11/19/23 11:20 15 mg ONCE ONE Administration Lidocaine 1 each 11/19/23 11:18 11/19/23 11:31 Lidocaine 5% Transdermal Patch TP 11/19/23 11:19 1 each ONCE ONE Administration Methocarbamol 1,500 mg 11/19/23 11:18 11/19/23 11:31 Methocarbamol 500mg Tablet PO 11/19/23 11:19 1,500 mg ONCE ONE Administration Prednisone 40 mg 11/19/23 11:18 11/19/23 11:31 Prednisone 20mg Tab PO 11/19/23 11:19 40 mg ONCE ONE Administration ORDERS Category Date Time Status CT lumbar spine wo con Stat Cat Scan 11/19/23 12:23 Completed Medical Decision Narrative: 32-year-old male history of chronic back pain presenting with acute on chronic back pain. Been going on for a few days. States that it happened acutely after coughing while in the shower. No bowel or bladder dysfunction, able to ambulate, pain is moderate in intensity. Has tried muscle relaxant, NSAID, lidocaine patch, no relief. No other associated symptoms. Intermittently radiates down his right leg. History obtained with patient and . On arrival, patient appears to be in no distress secondary to pain, but midline spinal tenderness in lumbosacral spine. No outward signs of injury or deformity or step-off etc. Although it feels low likelihood, given progressive worsening without any relief of conservative management, CT of the lumbar spine was ordered. On independent interpretation, no acute bony abnormality, spinal stenosis, etc., But patient does have mild central disc herniation at L5-S1 best seen on sagittal view. Patient was given lidocaine patch, Robaxin, prednisone, Toradol for symptoms. On reevaluation, patient feeling much better, but still having some pain. Because patient at baseline without signs or symptoms of clinical decompensation, deemed appropriate for discharge. Results were relayed to patient who voiced understanding and were agreeable to outpatient management and follow up. I discussed my clinical impression with patient and answered all questions. At this time, the evidence for any other entities in the differential is insufficient to warrant any further testing or ED observation. This was explained as well. Advisory was given that persistent or worsening symptoms require further evaluation. I confirmed the understanding of this discussion. Environmental Health Physician disclaimer Much of this encounter note is an electronic pipe liner spoken language to printed text. Electronic pipe liner of the spoken language may permit errors. Although I have reviewed the note, some errors may still exist. Critical Care Critical Care Time Critical Care Time: No
== END 2023-11-19 14:01 | disposition home or self-care (01) ==
PROVIDERS: Emergency Provider Emergency Medicine; PCP Internal Medicine
DX: M51.27 Other intervertebral disc displacement, lumbosacral region (principal); M62.830 Muscle spasm of back
CPT/HCPCS: 72131; 96372; 99284; J1885

== ENCOUNTER 2024-02-28 15:14 | Outpatient (CLI) | payer BC, OTHER, SELFPAY ==
[2024-02-28 14:30] LABS: Coronavirus 19, PCR Not Detected (NotDetected); Human Rhinovirus Not Detected (NotDetected); Influenza A, PCR Not Detected (NotDetected); Influenza B, PCR Not Detected (NotDetected); Respiratory Syncytial Virus Not Detected (NotDetected)
== END 2024-02-28 23:59 | disposition home or self-care (01) ==
LOC: LAB.DROPOF 15:14
PROVIDERS: PCP Internal Medicine; Visit Provider Internal Medicine
DX: R05.9 Cough, unspecified (principal); R09.81 Nasal congestion; H92.09 Otalgia, unspecified ear; R09.82 Postnasal drip; R11.10 Vomiting, unspecified
CPT/HCPCS: 87631

== ENCOUNTER 2024-04-26 13:19 | Outpatient (CLI) | payer BC, OTHER, SELFPAY | END 2024-04-26 23:59 | disposition home or self-care (01) | LOC: LAB.DROPOF 04-30 13:20 | PROVIDERS: PCP Internal Medicine; Visit Provider Internal Medicine | DX: J06.9 Acute upper respiratory infection, unspecified (principal) | CPT/HCPCS: 87070; 87205 ==

== ENCOUNTER 2024-04-27 09:27 | Outpatient (CLI) | payer BC, OTHER, SELFPAY | END 2024-04-27 23:59 | disposition home or self-care (01) | LOC: LAB 09:28 | PROVIDERS: PCP Nurse Practitioner Family; Visit Provider Nurse Practitioner Family | DX: E29.1 Testicular hypofunction (principal); R79.89 Other specified abnormal findings of blood chemistry ==

== ENCOUNTER 2024-05-02 09:55 | Outpatient (CLI) | payer BC, OTHER, SELFPAY ==
[2024-05-02 11:19] LABS: Motility Quality Moderate Progression (Mod-Rapid); Semen Viscosity Stringy (Normal); Sperm Count 2 mil/mm3 (20-160); Sperm Motility 50 % (50-90); WBCs,Semen Negative
[2024-05-02 11:20] LABS: Sperm Morphology Head Abnormality (Normal)
[2024-05-02 12:30] LABS: 3Hr Motility Quality Weak Progression (Mod-Rapid); 3Hr Sperm Motility 50 % (50-60)
== END 2024-05-02 23:59 | disposition home or self-care (01) ==
LOC: LAB.DROPOF 09:55
PROVIDERS: PCP Internal Medicine; Visit Provider Internal Medicine
DX: E29.1 Testicular hypofunction (principal); R79.89 Other specified abnormal findings of blood chemistry
CPT/HCPCS: 89320

== ENCOUNTER 2024-06-20 16:30 | Outpatient (CLI) | payer BC, OTHER, SELFPAY | END 2024-06-20 23:59 | disposition home or self-care (01) | LOC: LAB.DROPOF 06-21 13:51 | PROVIDERS: PCP Internal Medicine; Visit Provider Internal Medicine | DX: R09.3 Abnormal sputum (principal) | CPT/HCPCS: 87070; 87205 ==

== ENCOUNTER 2024-07-20 07:47 | Outpatient (CLI) | payer BC, OTHER, SELFPAY ==
[2024-07-21 08:16] LABS: Testosterone,Total 668 ng/dL (264-916)
[2024-07-24 12:14] LABS: Testosterone,Free 12.3 pg/mL (8.7-25.1)
== END 2024-07-20 23:59 | disposition home or self-care (01) ==
LOC: LAB.DROPOF 07-23 07:47
PROVIDERS: PCP Internal Medicine; Visit Provider Internal Medicine
DX: E29.1 Testicular hypofunction (principal); R79.89 Other specified abnormal findings of blood chemistry
CPT/HCPCS: 84402; 84403

== ENCOUNTER 2024-07-25 10:58 | Day surgery (SDC) | payer BC, OTHER, SELFPAY ==
[2024-07-25 11:37] VITALS: BP 145/96; PULSE 92; RESP 18; TEMP 36.7; O2SAT 97; BMI 37.0
[2024-07-25] MEDS: LACTATED RINGERS 1000ML 1,000 ML 50 ML IV (11:57)
--- NOTE | 2024-07-25 12:09 | P.PNANES_ITS ---
[facility] Disclaimer: The information contained in this section may have been updated after the patient was seen, as this information can be updated by other users. Medical History Dermoid cyst of scalp and neck Cyst, dermoid, face Scalp cyst Sinusitis Allergic rhinitis Vomiting and diarrhea Influenza Pellet wound of face Low testosterone in male Elevated liver enzymes Partial tear of right Achilles tendon History of gastroesophageal reflux (GERD) Scalp cyst Surgical History History of dermoid cyst excision Family History Mother Fatty liver disease, nonalcoholic Other Family history of acute congestive heart failure Family history of cancer Family history of diabetes mellitus type II Social History Smoking Status: Current every day smoker tobacco type: cigarettes packs per day: 1 and e-cigarettes alcohol intake: current alcohol intake frequency: 0-2 drinks per day substance use type: denies use current occupational status: employed Travel in the last 8 weeks?: None Have you lived/traveled outside US in past 30 days?: No Contact w/someone who lives/traveled outside US past 30 days?: No Exposure to someone with infectious disease in past 14 days?: No Do you have a fever (greater than 100.4 F or 38 C)?: No Have you tested positive for COVID-19?: No Exposed to someone with COVID-19 in past 14 days?: No Do you have a sore throat?: No Do you have a cough?: No Do you have any weakness?: No Do you have any diarrhea?: No Are you experiencing any unusual bleeding?: No Do you have any muscle aches/pain?: No Do you have any abdominal pain?: No Are you experiencing loss of taste or smell?: No [facility] Anesthesia Checklist Patient Identification Patient Identification: Arm Band and Verbal (Name & ) Structural Data Admitted From: Home Planned Operative Procedure/s: EGD Verified Documents: Surgical Consent NPO Status Verified Time NPO: 00:00 Chart Verification Results Verified: None Additional verifications Anesthesia Reactions: No Hx Blood Transfusions: No Blood Transfusion Reaction: No Airway Assessment Mallampati Score:: Class II C-Spine Mobility Assessed: Yes TMJ Mobility Assessed: Yes Dentition: Good Dentition Neurological Assessment Level of Consciousness: Awake, Alert and Appropriate Hx Seizures: No Numbness or tingling in extremities: No Anesthesia Plan Anesthesia Risk discussed: Yes Anesthesia Plan: Verified ASA Class: II Anesthesia Type: MAC
[2024-07-25 12:25] VITALS: BP 133/58; PULSE 82; RESP 16; TEMP 36.4; O2SAT 100
--- NOTE | 2024-07-25 12:37 | P.HP_ITS ---
History of Present Illness *Admission Date: 07/25/24 *Reason for visit:: Nausea and vomiting *History of present illness: Mr. Flowers is a 33-year-old gentleman with nausea and vomiting and some hematemesis who is here for diagnostic EGD. He does have a history of alcohol use disorder as well. The examination is deemed medically necessary for diagnostic EGD. The patient has been seen, interviewed and examined prior to the procedure by both myself and the anesthesia provider. [facility] Disclaimer: The information contained in this section may have been updated after the patient was seen, as this information can be updated by other users. Medical History Dermoid cyst of scalp and neck Cyst, dermoid, face Scalp cyst Sinusitis Allergic rhinitis Vomiting and diarrhea Influenza Pellet wound of face Low testosterone in male Elevated liver enzymes Partial tear of right Achilles tendon History of gastroesophageal reflux (GERD) Scalp cyst Surgical History History of dermoid cyst excision Family History Mother Fatty liver disease, nonalcoholic Other Family history of acute congestive heart failure Family history of cancer Family history of diabetes mellitus type II Social History Smoking Status: Current every day smoker tobacco type: cigarettes packs per day: 1 and e-cigarettes alcohol intake: current alcohol intake frequency: 0-2 drinks per day substance use type: denies use current occupational status: employed Travel in the last 8 weeks?: None Have you lived/traveled outside US in past 30 days?: No Contact w/someone who lives/traveled outside US past 30 days?: No Exposure to someone with infectious disease in past 14 days?: No Do you have a fever (greater than 100.4 F or 38 C)?: No Have you tested positive for COVID-19?: No Exposed to someone with COVID-19 in past 14 days?: No Do you have a sore throat?: No Do you have a cough?: No Do you have any weakness?: No Do you have any diarrhea?: No Are you experiencing any unusual bleeding?: No Do you have any muscle aches/pain?: No Do you have any abdominal pain?: No Are you experiencing loss of taste or smell?: No Other Medical History Have you received the Flu Vaccine for this season: No Have you received the Pneumonia Vaccine: No Review of Systems Review of Systems Review of systems (narrative): Negative *Cardiovascular Comments: Negative *Gastrointestinal Comments: Negative *Genitourinary Comments: Negative *Musculoskeletal Comments: Negative *Neurologic Comments: Negative Meds Home Medications and Allergies Home Medications ?Medication ?Instructions ?Recorded ?Confirmed ?Type lidocaine 3 %-hydrocortisone 2.5 % 1 applic AR QD-BID PRN hemorrhoids 03/01/23 07/25/24 Rx (7 gram) rectal gel #7 grams methocarbamol 1,000 mg tablet 1,000 mg PO TID PRN musc le spasms 02/28/24 07/25/24 History testosterone cypionate 200 mg/mL 100 mg (0.5 mL) IM WE EKLY #10 mL 05/11/24 07/25/24 Rx intramuscular oil ketoconazole 2 % shampoo 1 applic topical Q2W #120 mL 06/22/24 07/25/24 Rx pseudoephedrine HCl 60 mg tablet 60 mg PO Q6H PRN nasa l congestion 06/22/24 07/25/24 Rx #60 tabs tirzepatide 2.5 mg/0.5 mL 2.5 mg (0.5 mL) SQ WEEKLY #2 .5 mL 06/22/24 07/25/24 Rx subcutaneous pen injector omeprazole 20 mg capsule,delayed 20 mg PO DAILY #90 ca ps 06/28/24 07/25/24 Rx release ondansetron 4 mg disintegrating 4 mg PO Q8H PRN nausea and 06/28/24 07/25/24 Rx tablet vomiting #30 tabs hydrocortisone 2.5 % topical cream 1 applic AR QD-BID PRN hemorrhoids 07/23/24 07/25/24 Rx with perineal applicator #30 grams (Anusol-HC) hydrocortisone acetate 25 mg 25 mg AR BID PRN hemorrho ids #24 ea 07/23/2406/15 Rx rectal suppository (Anusol-HC) New Prescriptions to Start Prescriptions: Allergies Allergy/AdvReac Type Severity Reaction Status Date / Time No Known Allergies Allergy Verified 07/25/24 11:31 Exam Data for Last 24 hours Vital signs and Labs for Last 24 Hours: Temp Pulse Resp BP Pulse Ox O2 Del Method 98.1 F 92 H 18 145/96 H 97 Room Air 07/25/24 11:37 07/25/24 11:37 07/25/24 11:37 07/25/24 11:37 07/25/24 11:37 07/25/24 11:37 I & O for Last 24 hours: Intake & Output 07/22/24 07/23/24 07/24/24 07/25/24 23:59 23:59 23:59 23:59 Weight 273 lb *Routine HEENT Exam Head: Present normocephalic Eye: Present EOMI and PERRL ENT: Present mucous membranes moist *Routine Neck Exam Neck: Present supple *Routine Respiratory Exam Respiratory: Present CTA bilaterally *Routine Cardiovascular Exam Cardiovascular: Present RRR *Routine Abdominal Exam Abdominal: Present soft and normoactive bowel sounds; Absent tenderness *Routine Rectal Exam Rectal:: deferred *Routine Genitalia Exam Genitalia:: deferred *Routine Extremities Exam Extremities: Absent cyanosis, clubbing or edema *Routine Skin Exam Skin: Present warm; Absent rash *Routine Neurological Exam Neurological: Present alert and oriented X3 Assessment and Plan *Assessment and plan (1) Nausea and vomiting: Status: Chronic Category: Medical Code(s): R11.2 - Nausea with vomiting, unspecified (2) Hematemesis: Status: Acute Category: Medical Code(s): K92.0 - Hematemesis (3) Alcohol use disorder: Status: Acute Category: Medical Code(s): F10.90 - Alcohol use, unspecified, uncomplicated Plan A/P: 1. Nausea, vomiting and hematemesis is the preprocedural diagnosis. The patient will be anesthetized/sedated using MAC sedation. The patient has been seen and examined. Cardiac and lung assessment prior to the examination is stable. Proceed with planned diagnostic EGD.
--- NOTE | 2024-07-25 12:43 | P.PCN_ITS ---
[facility] Procedure Note Date: 07/25/24 Time: 12:50 Procedure Note:: Upper Endoscopy Procedure Report: Esophagogastroduodenoscopy with cold biopsies Endoscopost: Kit Montgomery II, MD Referring Physician: Deny Vargas DO Date of Procedure: July 25, 2024 Equipment: Olympus GIF 190 standard upper endoscope Sedation: MAC sedation Indications: Mr. Flowers is a 33-year-old gentleman with persistent nausea and vomiting. He has had this trouble for a couple of years. This has been progressively worsening. He does report early satiety and a little bloating. He reports no belching. When he does get emesis it can be food or bile. He reports some generalized abdominal discomfort and pressure. He reports regular bowel function but has had some hemorrhoidal issues recently with pain and some blood. He was given hydrocortisone cream which helped a little bit. He does drink alcohol daily and only uses cannabis once every other month. He reports that his symptoms do not improve with showering (hot showers) and actually worsen. He reports no dysphagia. He did have some bright red emesis at the end of the session of retching and vomiting. Procedure: Prior to the procedure, a history and physical exam was performed, and patient's medications and allergies were reviewed. The risks, benefits and alternatives of the sedation and procedure were discussed with the patient. All questions were answered and informed consent was obtained. The patient was brought to the procedure room. Patient identification and proposed procedure were verified by the physician and the nurse. The patient was placed in a left lateral decubitus position and the scope was passed under direct vision. Throughout the procedure, the patient's blood pressure, pulse, and oxygen saturations were monitored continuously. The upper GI endoscopy was accomplished without difficulty. The patient tolerated the procedure well. Findings: The scope was passed directly into the upper esophagus and advanced to the fourth portion of duodenum and proximal jejunum. Cold biopsies were taken x 2 of the proximal jejunum for disaccharidase assay. The proximal jejunum, post bulbar duodenum, ampulla and duodenal bulb were normal with normal mucosa and conniventes. The scope was withdrawn through a normal duodenal bulb and pylorus into the stomach. There was mild to moderate linear reactive gastropathy of the antrum. There was mild chronic gastritis of the body and fundus. Cold biopsies were taken along the lesser curvature of the stomach to rule out H. pylori. Upon retroflexion there was no hiatal hernia. The scope was then withdrawn into the esophagus. There was a serrated Z-line with 1 tongue of salmon-colored mucosa and 1 island of salmon-colored mucosa and directed biopsies were taken here in the distal esophagus to rule out short segment Encinas's esophagus. There was no evidence of reflux esophagitis and the remainder of the esophageal mucosa was normal. Impression: 1. Nonerosive GERD with short tongues of salmon-colored mucosa biopsied to rule out short segment Encinas's esophagus 2. Linear reactive antral gastropathy and mild chronic gastritis Plan: I will follow-up the biopsies and disaccharidase assay. I would recommend metoclopramide. I would also consider [id number] herbal Iberogast. I will discuss the findings with the patient and family.
[2024-07-25 12:55] VITALS: BP 90/56; PULSE 90; RESP 18; TEMP 36.7; O2SAT 95
[2024-07-25 13:05] VITALS: BP 117/68; PULSE 88; RESP 18; TEMP 36.4; O2SAT 96
[2024-07-25 13:15] VITALS: BP 121/75; PULSE 97; RESP 18; TEMP 36.4; O2SAT 98
[2024-07-30 15:10] LABS: Disclaimer Notes (.); Interpretation Notes (.); Lactase 36.2 (>/= 14.0); Maltase 336.65 (>/= 110.0); Palatinase 24.53 (>/= 8.5); Reference Notes (.); Sucrase 101.57 (>/= 25.0)
== END 2024-07-25 13:33 | disposition home or self-care (01) ==
PROVIDERS: PCP Internal Medicine; Visit Provider Internal Medicine Gastroenterology
PROC: 0DJ08ZZ Inspection of Upper Intestinal Tract, Via Natural or Artificial Opening Endoscopic (ICD-10-PCS; CPT 43239; principal; 2024-07-25 13:00)
DX: K21.00 Gastro-esophageal reflux disease with esophagitis, without bleeding (principal); R11.2 Nausea with vomiting, unspecified; K31.9 Disease of stomach and duodenum, unspecified; K29.50 Unspecified chronic gastritis without bleeding; F10.90 Alcohol use, unspecified, uncomplicated; F17.210 Nicotine dependence, cigarettes, uncomplicated; F17.290 Nicotine dependence, other tobacco product, uncomplicated; Z79.899 Other long term (current) drug therapy
CPT/HCPCS: 43239; 82657; J7120

== ENCOUNTER → 2024-08-01 07:52 | Outpatient (CLI) | payer BC, OTHER, SELFPAY ==
--- OUTSIDE RECORDS SUMMARY | 2024-05-26 17:30 | XMS_ITS ---
Author Organization [facility] Address [address] [facility] [address] [place] [address] Care Team Providers Care Carton Stapler Name Role Phone Matty Moreirahen Primary Care Provider Migration, Provider Unavailable Unavailable REASON FOR VISIT [facility] To [facility] Conversion Encounter Medications Medication SIG (Take, Route, Frequency, Duration) Notes Start Date End Date Status Nasacort Allergy 24HR 55 MCG/ACT 1 spray(s) in each nostril once a day Active Abilify 2 MG 1 tab(s) orally once a day for 30 days 07/16/2022 Active Famotidine 20 MG 1 tab(s) orally 2 ti mes a day Unknown Vraylar 1.5 MG 1 cap(s) orally once a day for 30 days 05/10/2022 Not-Taking Benadryl Allergy 25 MG 1 cap(s) orally e very 6 hours Not-Taking Xyzal Allergy 24HR 5 MG 1 tab(s) orally once a day (in the evening) Active Encounters Encounter Location Date Provider Diagnosis [facility] [address] [facility] [address] [place] [id number] 05/26/2024 Provider Migration Moderate episode of recurrent major depressive disorder F33.1 Assessments Encounter Date Diagnosis (ICD Code) Assessment Notes Treatment Notes Treatment Clinical Notes Section Notes 05/26/2024 Moderate episode of recurrent major depressive disorder (ICD-10 - F33.1) Plan Of Treatment Medication Medication Name Sig Start Date Stop Date Notes Abilify 2 MG 1 tab(s) orally once a day for 30 days 2022 Progress Notes * Ag MOCTEZUMA MDOB:[birth year] (33 yo M)Acc No.[id number]:05/26/2024 Patient: Ag GARCIA Provider: Quinton Diaz :1990 A ge:33 Y S ex:Male Date:05/26/2024 Address:[facility] [address], [place], [id number] Pcp:Ricky Moreira Subjective: * Chief Complaints: * 1 . [facility] To Medispan Conversion Encounter. * Medical History: * Medications: T aking Nasacort Allergy 24HR 55 MCG/ACT Aerosol 1 spray(s) in each nostril once a day , Taking Xyzal Allergy 24HR 5 MG Tablet 1 tab(s) orally once a day (in the evening) , Not-Taking Benadryl Allergy 25 MG Capsule 1 cap(s) orally every 6 hours , Not- Taking Vraylar 1.5 MG Capsule 1 cap(s) orally once a day , Unknown Famotidine 20 MG Tablet 1 tab(s) orally 2 times a day Objective: * Vitals: Assessment: * Assessment: 1. M oderate episode of recurrent major depressive disorder - F33.1 Plan: * Treatment: * * Electronic signature of Prov ider Migration on 08/01/2024 at 07:54 AM EDT Sign off status: Pending * Provider: Quinton Diaz Date: 0 05/26/2024 Generated for Vivek salinas/Ally/Desmond on: 0 08/01/2024 07:54 AM EDT
--- OUTSIDE RECORDS SUMMARY | 2024-08-01 07:54 | XMS_ITS | Patient Health Record ---
Author Organization [facility] Address [address] [place] [address] Care Team Providers Care Tax Assistant Name Role Phone Ricky Moreira Primary Care Provider [phone] Migration, Provider Unavailable Unavailable Allergies No Known Allergies Medications Medication SIG (Take, Route, Frequency, Duration) Notes Start Date End Date Status Nasacort Allergy 24HR 55 MCG/ACT 1 spray(s) in each nostril once a day Active Abilify 2 MG 1 tab(s) orally once a day for 30 days 07/16/2022 Active Famotidine 20 MG 1 tab(s) orally 2 ti mes a day Unknown Xyzal Allergy 24HR 5 MG 1 tab(s) orally once a day (in the evening) Active Vraylar 1.5 MG 1 cap(s) orally once a day for 30 days 05/10/2022 Not-Taking Benadryl Allergy 25 MG 1 cap(s) orally e very 6 hours Not-Taking Immunizations Vaccine Route Administration Date Status Comme nts Fluvirin--Influenza vaccine 3+ year Unknown 12/13/2006 Administered Social History Tobacco Use: Social History Observation Description Date Details (start date - stop date) Current Smoker NA - NA Smoking: Question Answer Notes Are you a: current smoker How often do you smoke cigarettes? every day How many cigarettes a day do you smoke? 11-20 How soon after you wake up d o you smoke your first cigarette? 6-30 min Are you interested in quitting? Thinking about q uitting Problems Problem Type SNOMED Code ICD Code Onset Dates Problem Status W/U Status Risk Notes Problem 763361114 Tobacco use (Z72.0) Active confirmed Problem 878064729 Depression with anxiety (F41.8) Active confirmed Problem 536034869 BMI 36.0-36.9,adult (Z68.36) Active confirmed Problem 12337057 Mood disorder (F39) Active confirmed Problem 24876742 Alcohol abuse (F10.10) Active confirmed Problem 574006526 Moderate episode of recurrent major depressive disorder (F33.1) Active confirmed Problem Laboratory test result abnormal (473718662) Abnormal laboratory test (R89.9) Active confirmed Encounters Encounter Location Date Provider Diagnosis [facility] [address] [place] [address] 05/26/2024 Provider Migration Moderate episode of recurrent major depressive disorder F33.1 Assessments Encounter Date Diagnosis (ICD Code) Assessment Notes Treatment Notes Treatment Clinical Notes Section Notes 05/26/2024 Moderate episode of recurrent major depressive disorder (ICD-10 - F33.1) Plan Of Treatment Pending Test Test Name Order Date Rapid Strep 05/09/2006 Insurance Providers Payer Name Payer Address Payer Phone Subscriber Number Group Number Insured Name Patient Relationship to Insured Coverage Start Date Coverage End Date R [address] [address] [place] [address] [id number] [employer] Self - patient is the insured Medical (General) History Medical History History ICD Code migraine headache Surgical History Surgery Date(Month/Year) achilles tendon surgey left hand surgery removing cyst from neck and head 023 Hospitalization History Reason Date(Month/Year) achilles tendon surgery
== END ==
LOC: SL 07:52
PROVIDERS: PCP Internal Medicine; Visit Provider Internal Medicine
DX: R06.83 Snoring
CPT/HCPCS: G0399

== ENCOUNTER 2024-08-28 12:03 | Outpatient (CLI) | payer BC, OTHER, SELFPAY ==
--- NOTE | 2024-08-28 12:05 | XR_ITS ---
FINAL REPORT CLINICAL HISTORY: Cough, chest congestion FINDINGS: 2 views of the chest were obtained . The heart is normal in size. The mediastinum is within normal limits. The lungs are clear. There is no pneumothorax. Osseous structures are unremarkable. IMPRESSION: No acute cardiopulmonary process. Reviewed, Interpreted and Dictated by Patrice Oswald MD Transcribed by Sofy Lorenzo Authenticated and [facility]
== END 2024-08-28 23:59 | disposition home or self-care (01) ==
LOC: RAD 12:04
PROVIDERS: PCP Internal Medicine; Visit Provider Internal Medicine
DX: J06.9 Acute upper respiratory infection, unspecified (principal)
CPT/HCPCS: 71046